=== PATIENT | female | born 1935 | race Asian ===

== ENCOUNTER 2017-07-05 09:38 | Outpatient (CLI) | payer OTHER ==
[~2017-07-05 09:38] MED LIST: ASA LO-DOSE81 MG OR; CALCIUM600 M2 OR; ESTR0.6256 VA; LISI10TA11 PO; MULTIVITAMI1 OR
== END 2017-07-05 18:58 | disposition home or self-care (01) ==
LOC: MAMMO 09:38
DX: Z12.31 Encounter for screening mammogram for malignant neoplasm of breast (principal); M81.0 Age-related osteoporosis without current pathological fracture

== ENCOUNTER 2017-12-19 13:51 | Outpatient (CLI) | payer OTHER ==
[2017-12-19 14:18] LABS: PLATELET COUNT 195 K/uL (152-353)
[2017-12-19 14:39] LABS: POTASSIUM 4.1 mmol/L (3.6-5.2)
== END 2017-12-19 20:33 | disposition home or self-care (01) ==
LOC: LAB 13:51
PROVIDERS: Nurse Practitioner Family
DX: I10 Essential (primary) hypertension (principal); E78.4 Other hyperlipidemia; Z79.899 Other long term (current) drug therapy; Z51.81 Encounter for therapeutic drug level monitoring; R53.81 Other malaise; E55.9 Vitamin D deficiency, unspecified
CPT/HCPCS: 80053; 80061; 83036; 84436; 84443; 85027

== ENCOUNTER 2018-01-22 09:34 | Outpatient (CLI) | payer OTHER | END 2018-01-22 23:23 | disposition home or self-care (01) | LOC: CT 09:34 | DX: I25.10 Atherosclerotic heart disease of native coronary artery without angina pectoris (principal); Z13.6 Encounter for screening for cardiovascular disorders ==

== ENCOUNTER 2018-01-22 14:27 | Outpatient (CLI) | payer OTHER ==
[2018-01-22 15:02] LABS: POTASSIUM 4.2 mmol/L (3.6-5.2)
== END 2018-01-22 23:33 | disposition home or self-care (01) ==
LOC: LAB 14:27
PROVIDERS: Nurse Practitioner Family
DX: E55.9 Vitamin D deficiency, unspecified (principal); R53.83 Other fatigue
CPT/HCPCS: 80053; 80074

== ENCOUNTER 2018-03-22 20:18 | Emergency (ER) | payer OTHER ==
[~2018-03-22] VITALS: Ht 182.9 cm; Wt 49.9 kg
[2018-03-22 21:03] LABS: PLATELET COUNT 169 K/uL (152-353)
[2018-03-22 21:17] LABS: POTASSIUM 3.3 mmol/L (3.6-5.2); SODIUM 140 mmol/L (136-145)
[2018-03-22 23:10] VITALS: BP 259/117; TEMP 95.3
== END 2018-03-22 23:10 | disposition short-term general hospital (02) ==
LOC: ED 20:18
PROVIDERS: Family Medicine
PROC: 0T9B70Z Drainage of Bladder with Drainage Device, Via Natural or Artificial Opening (ICD-10-PCS; principal; 2018-03-22)
DX: I60.9 Nontraumatic subarachnoid hemorrhage, unspecified (principal)
CPT/HCPCS: 36415; 36600; 51702; 74022; 80053; 81000; 82550; 82805; 84484; 85027; 85610; 85730; 93005; 96361; 96365; 96374; 96375; 99285; J2310; J2405; J3490